=== PATIENT | male | born 1960 | race Caucasian/White ===

== ENCOUNTER 2021-07-05 15:36 | Emergency (ER) | payer OTHER ==
[~2021-07-05] VITALS: Ht 185.4 cm; Wt 77.1 kg
--- NOTE | 2021-07-05 15:52 | NUR ---
TO ER BED 3, C/O OF RESTLESSNESS S/P OPIATE WITHDRAWAL 3DAYS AGO, AAOX4, BREATHING EVEN AND NON LABORED, ATTACHED TO MONITOR
[2021-07-05] MEDS ORDERED: BUPRENORPHINE HCL 2 MG TAB.SUBL SL ONE ×2 (16:00→16:05)
--- NOTE | 2021-07-05 17:19 | NUR ---
Patient discharged to home in stable condition. Written and verbal after care instructions given. Patient verbalizes understanding of instruction.
[2021-07-05 17:21] VITALS: BP 154/74
== END 2021-07-05 17:21 | disposition home or self-care (01) ==
LOC: ER 15:42
DX: F11.23 Opioid dependence with withdrawal (principal); R19.7 Diarrhea, unspecified; R00.0 Tachycardia, unspecified